=== PATIENT | male | born 1995 | race American Indian/Alaskan Native ===

== ENCOUNTER 2016-08-29 10:08 | Emergency (ER) | payer OTHER ==
[2016-08-29 10:17] VITALS: RESP 16; TEMP 97.6; O2SAT 100
--- NOTE | 2016-08-29 10:26 | ED PDOC ---
Arrival/HPI - General Chief Complaint: Upper Extremity Problem/Injury Time Seen by Provider: 08/29/16 10:23 Historian: Patient - History of Present Illness Narrative History of Present Illness (Text): 08/29/16 10:23 21yo male with no PMhx who present with complaint of left 3rd finger laceration s/p trauma this morning. states a tile cutter cut his finger, while cutting a tile at work. He is not up to date with his TD booster. Denies any other complaint. Past Medical History - Provider Review Nursing Documentation Reviewed: Yes - Infectious Disease Hx of Infectious Diseases: None - Psychiatric Hx Substance Use: No Family/Social History - Physician Review Nursing Documentation Reviewed: Yes Family/Social History: Unknown Family HX Smoking Status: Current Some Days Smoker Hx Alcohol Use: Yes Frequency of alcohol use: Socially Hx Substance Use: No Allergies/Home Meds Allergies/Adverse Reactions: Allergies No Known Allergies Allergy (Verified 08/29/16 10:17) Review of Systems - Physician Review All systems were reviewed & negative as marked: Yes - Review of Systems Constitutional: Normal Eyes: Normal ENT: Normal Respiratory: Normal Cardiovascular: Normal Gastrointestinal: Normal Genitourinary Male: Normal Musculoskeletal: Normal Skin: Laceration (Left 3rd finger) Neurological: Normal Endocrine: Normal Hemo/Lymphatic: Normal Psychiatric: Normal Physical Exam Vital Signs Reviewed: Yes Vital Signs Temp Pulse Resp BP Pulse Ox 08/29/16 11:50 89 16 149/82 100 08/29/16 10:12 97.6 F 90 16 151/87 H 100 Temperature: Afebrile Blood Pressure: Normal Pulse: Regular Respiratory Rate: Normal Appearance: Positive for: Well-Appearing, Non-Toxic, Comfortable Pain Distress: None Mental Status: Positive for: Alert and Oriented X 3 - Systems Exam Head: Present: Atraumatic, Normocephalic Pupils: Present: PERRL Extroacular Muscles: Present: EOMI Conjunctiva: Present: Normal Mouth: Present: Moist Mucous Membranes Neck: Present: Normal Range of Motion Respiratory/Chest: Present: Clear to Auscultation, Good Air Exchange. No: Respiratory Distress, Accessory Muscle Use Cardiovascular: Present: Regular Rate and Rhythm, Normal S1, S2. No: Murmurs Abdomen: Present: Normal Bowel Sounds. No: Tenderness, Distention, Peritoneal Signs Back: Present: Normal Inspection Upper Extremity: Present: Normal Inspection. No: Cyanosis, Edema Lower Extremity: Present: Normal Inspection. No: Edema Neurological: Present: GCS=15, CN II-XII Intact, Speech Normal Skin: Present: Warm, Dry, Normal Color, Laceration (Approximately 2.0cm curvlinear laceration on the 3rd distal volar finger). No: Rashes Psychiatric: Present: Alert, Oriented x 3, Normal Insight, Normal Concentration Medical Decision Making ED Course and Treatment: 08/29/16 11:30 Pt presented for stated history. He have FROM of his finger. No tendon involvement noted. Suture was irrigated with NS/betadine and approximated with 8 #5proline. Cleansed. bacitracine applied and dressed. Placed on prophylactic abx Left hand xray - No fracture noted Pt advised to keep wound clean and dry. Referred to his PMD. TRT ED for any new or worsening symptoms. - RAD Interpretation Radiology Orders: 08/29/16 11:29 HAND LEFT 3RD DIGIT (FINGER) [RAD] Stat - Medication Orders Current Medication Orders: Discontinued Medications Acetaminophen (Tylenol 325mg Tab) 650 mg PO STAT STA Stop: 08/29/16 10:29 Last Admin: 08/29/16 10:33 Dose: 650 MG MAR Pain/Vitals Document 08/29/16 10:33 SE (Rec: 08/29/16 10:33 SE [id number]) Pain Reassessment Is This A Pain ReAssessment? No Sleep Is patient sleeping during reassessment? No Presence of Pain Presence of Pain Yes Pain Scale Used Pain Scale Used Numeric Cephalexin Monohydrate (Keflex) 500 mg PO STAT STA PRN Reason: Protocol Stop: 08/29/16 10:28 Last Admin: 08/29/16 10:33 Dose: 500 MG Tetanus/Reduced Diphtheria/Acell Pertussis (Boostrix Vaccine Inj) 0.5 ml IM .ONCE ONE Stop: 08/29/16 10:36 Last Admin: 08/29/16 10:41 Dose: 0.5 ML [facility] Immunization Data Document 08/29/16 10:41 SE (Rec: 08/29/16 10:41 SE [id number]) Immunization Data Vaccine Lot Number [id number] Vaccine Expiration Date 08/11/18 Site Given Right Arm Route Intramuscular Immunization Units ml Procedure: Wound Repair - Consent Obtained Consent obtained: Verbal - Performed by Performed by: Mid-level Provider - Indications Indication(s):: Laceration - Location Finger:: Left, Middle Shape:: Curvilinear Dimensions Length cm: 2.0 - Anesthetic Technique Anesthetic Technique: Local Local/Regional Anesthetic:: Lidocaine 1% (5ml) - Debris Debris:: None - Irrigated Irrigated with ml of normal saline: 50 - Complexity Complexity:: Intermediate (2 layer) - Muscle repiar layer closed with Muscle repair layer closed with:: # (8), Size (5), Type (nylon), Technique ( interruped), Wound well approximated, Abx ointment applied, Dressing applied, Tetanus ordered - Patient tolerated procedure Patient Tolerated Procedure:: Well Disposition/Present on Arrival - Present on Arrival Any Indicators Present on Arrival: No History of DVT/PE: No History of Uncontrolled Diabetes: No Urinary Catheter: No History of Decub. Ulcer: No History Surgical Site Infection Following: None - Disposition Have Diagnosis and Disposition been Completed?: Yes Diagnosis: Finger laceration Disposition: HOME/ ROUTINE Disposition Time: 11:50 Patient Plan: Discharge Condition: STABLE Discharge Instructions (ExitCare): Finger Laceration (ED) Additional Instructions: Keep wound clean and dry Follow up with your doctor in 7-10days for suture removal Return to ED for redness, discharge from wound, fever, any other complaint. Prescriptions: Cephalexin [cephalexin] 500 mg PO TID #21 cap Referrals: [facility] [place] [facility] [place] - Follow up with primary Forms: WORK NOTE
[2016-08-29] MEDS ORDERED: TDAP Vaccine 0.5 mL Syr IM ONE (10:35)
[2016-08-29 11:54] VITALS: BP 149/82; PULSE 89
--- NOTE | 2016-08-29 13:04 | RAD ---
PROCEDURE: Left Hand Radiographs. HISTORY: finger injury COMPARISON: None. FINDINGS: BONES: Normal. No fracture. JOINTS: Normal. No osteoarthritic changes. SOFT TISSUES: Normal. OTHER FINDINGS: None. IMPRESSION: Normal left hand radiographs.
== END 2016-08-29 11:54 | disposition home or self-care (01) ==
LOC: ED 10:08
DX: S61.213A Laceration without foreign body of left middle finger without damage to nail, initial encounter (principal); W27.8XXA Contact with other nonpowered hand tool, initial encounter; Y93.H3 Activity, building and construction; Y92.69 Other specified industrial and construction area as the place of occurrence of the external cause; Y99.0 Civilian activity done for income or pay